=== PATIENT | female | born 1975 | race Caucasian/White ===

== ENCOUNTER 2022-04-24 09:00 | Outpatient (CLI) | payer BC, SELFPAY ==
--- NOTE | 2022-04-24 10:18 | MM_ITS ---
WS: [id number] DIAGNOSTIC BILATERAL DIGITAL BREAST TOMOSYNTHESIS MAMMOGRAPHY WITH CAD RIGHT breast ultrasound, limited HISTORY: Palpable nodule RIGHT breast, anterior, 12:00. COMPARISON: None available. TECHNIQUE: Bilateral craniocaudad, mediolateral oblique, and mediolateral views are submitted with to mosnadege and ALAINA. Computer aided detection utilized. Breast composition: The breasts are heterogeneously dense, which may obscure small masses. Triangular marker is placed along the anterior breast near 12:00. No definite underlying abnormality is identif ied. No distortion of soft tissues. No calcifications. LEFT breast is negative. RIGHT breast ultrasound, limited. 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 There is a hypoechoic mass with slightly irregular margins measuring 6 x 7 x 4 mm. No increased vascularity. Thi s is a solid mass. MM/[place] [id number] IMPRESSION: BI-RADS: 4-Suspicious Finding-Biopsy Should Be Considered FOLLOW UP: Biopsy Recommended Ultrasound-guided biopsy recommended RIGHT breast mass at the areolar. Notified TED Rodrigez at 04/24/2022 12:20 PM.
== END 2022-04-24 09:01 | disposition home or self-care (01) ==
PROVIDERS: PCP Nurse Practitioner Family; Visit Provider Nurse Practitioner Family
DX: N63.15 Unspecified lump in the right breast, overlapping quadrants (principal)
CPT/HCPCS: 76642; 77062

== ENCOUNTER 2022-05-17 13:00 | Outpatient (CLI) | payer BC, SELFPAY ==
--- NOTE | 2022-05-17 13:04 | US_ITS ---
WS: [id number] ULTRASOUND-GUIDED RIGHT BREAST BIOPSY CLINICAL INFORMATION: N63.10 - Unspecified lump in the right breast, unspecifie... FINDINGS: The procedure including risks, benefits, and complications were discussed with the patient who agreed to proceed. Using sterile technique patient was prepped and draped in the usual sterile fashion. Aft er 1% lidocaine utilizing real-time ultrasound guidance 5 14-gauge cores were obtained of the RIGHT b reast lesion at the 12 o'clock position areola. Subsequently a titanium clip was placed in the biopsy cavity. No immediate complications. Pathology demonstrates A. Breast, right, 12 o'clock, areola , biopsy: - Benign breast with fibrocystic changes. - No malignancy identified. US/[place] [id number] IMPRESSION: 1. Uncomplicated ultrasound-guided RIGHT breast biopsy. 2. The pathology demonstrates benign breast tissue with fibrocystic changes. N o malignancy identified. 3. Recommend return to annual screening mammography. BI-RADS: 2-Benign FOLLOW UP: 1 Year Follow-up
== END 2022-05-17 13:01 | disposition home or self-care (01) ==
LOC: RAD 13:01
PROVIDERS: PCP Nurse Practitioner Family; Visit Provider Nurse Practitioner Family
DX: N63.15 Unspecified lump in the right breast, overlapping quadrants (principal)
CPT/HCPCS: 19083; 88305

== ENCOUNTER → 2022-09-04 10:49 | Outpatient (BNVA) | payer BC, SELFPAY | PROVIDERS: PCP Nurse Practitioner Family; Visit Provider Nurse Practitioner Family | DX: M25.522 Pain in left elbow (principal); R03.0 Elevated blood-pressure reading, without diagnosis of hypertension | CPT/HCPCS: 73080; 80053; 80061; 84443; 85025 ==

== ENCOUNTER → 2023-09-11 10:11 | Outpatient (BNVA) | payer BC, SELFPAY | PROVIDERS: PCP Nurse Practitioner Family; Visit Provider Nurse Practitioner Family | DX: M25.521 Pain in right elbow; M79.631 Pain in right forearm | CPT/HCPCS: 73080; 73090 ==

== ENCOUNTER 2023-09-18 10:57 | Outpatient (CLI) | payer BC, SELFPAY ==
--- NOTE | 2023-09-18 13:30 | MM_ITS ---
WS: [id number] BILATERAL SCREENING DIGITAL TOMOSYNTHESIS MAMMOGRAM WITH CAD HISTORY: Z12.39 - Encounter for other screening for malignant neop... COMPARISON: 04/24/2022, Bilateral CC and MLO views with tomosynthesis and synthetic mammography submitted. Computer aided det ection analyzed. Breast composition: There are scattered areas of fibroglandular density. No suspicious masses, microc alcifications or architectural distortion. Biopsy clip in the anterior RIGHT breast. No associated ma ss. IMPRESSION: MM/[place] [id number] BI-RADS: 2-Benign FOLLOW UP: 1 Year Follow-up
== END 2023-09-18 10:58 | disposition home or self-care (01) ==
LOC: RAD 10:58
PROVIDERS: PCP Nurse Practitioner Family; Visit Provider Nurse Practitioner Family
DX: Z12.31 Encounter for screening mammogram for malignant neoplasm of breast (principal)
CPT/HCPCS: 77063; 77067

== ENCOUNTER 2023-10-23 09:49 | Outpatient (CLI) | payer BC, SELFPAY ==
--- NOTE | 2023-10-23 11:00 | MR_ITS ---
WS: [id number] MRI RIGHT ELBOW WITHOUT CONTRAST. COMPARISON: None Multiplanar, multisequence imaging is performed without contrast. No fractures or marrow edema. Normal alignment at the elbow joint. Radial head is intact. No osteocho ndral lesions. No osteophytosis. No joint effusion. The distal biceps tendon appears normal. There is no muscle atrophy. There is a very tiny amount of increased T2 signal in the radial collateral ligam ent which may represent a very tiny tear. The majority of the ligament is intact. There is no edema o r joint effusion associated with this tear. The ulnar collateral ligament appears appropriate. Normal distal triceps tendon. IMPRESSION: 1. No joint effusion or fracture. 2. Very minimal increased T2 signal in the central radial collateral ligament consistent with a very tiny tear. There is no associated adjacent soft tissue edema.
== END 2023-10-23 09:50 | disposition home or self-care (01) ==
LOC: RAD 09:50
PROVIDERS: PCP Nurse Practitioner Family; Visit Provider Nurse Practitioner Family
DX: M79.631 Pain in right forearm (principal); M25.521 Pain in right elbow; M25.621 Stiffness of right elbow, not elsewhere classified; G89.29 Other chronic pain
CPT/HCPCS: 73221; 87624

== ENCOUNTER → 2023-11-22 10:58 | Outpatient (BNVA) | payer BC, SELFPAY | PROVIDERS: PCP Nurse Practitioner Family; Visit Provider Nurse Practitioner Family | DX: J02.9 Acute pharyngitis, unspecified (principal); J06.9 Acute upper respiratory infection, unspecified | CPT/HCPCS: 87071; 87880 ==

== ENCOUNTER 2023-12-06 02:50 | Emergency (ER) | payer BC, SELFPAY ==
[2023-12-06 02:53] VITALS: BP 149/89; PULSE 69; RESP 14; TEMP 36.5; O2SAT 96; BMI 25.2
--- NOTE | 2023-12-06 02:55 | ED_ITS ---
HPI - Allergic Reaction General: Chief complaint: Allergic Reaction Stated complaint: Allergic reaction Time Seen by Provider: 12/06/23 02:51 History of Present Illness: HPI narrative: 48-year-old female who presents to the e mergency room by ambulance with allergic reaction. She says she awoke with a rash/hives and her tongue felt numb. No chest pain. No shortness of breath. No altered mental status. No nausea or vomiting. No new exposures. No new detergents. No new foods. Review of Systems Narrative: Constitutional symptoms: Negative except as documented in HPI. Skin symptoms: Negative except as documented in HPI. Eye symptoms: Negative except as documented in HPI. ENMT symptoms: Negative except as documented in HPI. Respiratory symptoms: Negative except as documented in HPI. Cardiovascular symptoms: Negative except as documented in HPI. Gastrointestinal symptoms: Negative except as documented in HPI. Genitourinary symptoms: Negative except as documented in HPI. Musculoskeletal symptoms: Negative except as documented in HPI. Neurologic symptoms: Negative except as documented in HPI. Psychiatric symptoms: Negative except as documented in HPI. Endocrine symptoms: Negative except as documented in HPI. [facility] ED PFSH: Medical History No pertinent past medical history neghx: htn,dm,thyroid,dvt/pe PCP: JORGE Rodrigez Breast mass, right (~05/2022) bx confirmed fibrocystic changes; benign Migraine Hx of ectopic did not require salpingectomy; uncertain laterality Surgical History H/O vaginoplasty (~2013) possibly A&P repair H/O tubal ligation (~2002) performed in [place]; uncertain of approach H/O dilation and curettage treatment for SAB Hx of section (~2001) performed due to breech presentation. [facility]. Family History Mother Breast cancer Diabetes Heart disease Hyperlipidemia Thyroid disease Grandfather Colon cancer Father Heart disease Hyperlipidemia Hypertension Grandmother Thyroid disease Denies family history of Ovarian cancer Prostate cancer Uterine cancer Stroke Physical Exam Narrative: EXAM NARRATIVE: General: Alert, no acute distress. Skin: Warm, dry. Diffuse xqnck-ujo-yeras rash. Head: Normocephalic, atraumatic. Neck: Supple, trachea midline. Eye: Extraocular movements are intact. Ears, nose, mouth and throat: mucosa moist. Cardiovascular: Regular, Normal peripheral perfusion. Respiratory: Lungs are clear to auscultation, respirations are non-labored, breath sounds are equal, Symmetrical chest wall expansion. Gastrointestinal: Soft, Nontender, Non distended, Normal bowel sounds. Musculoskeletal: Normal ROM, no deformity. Neurological: Alert and oriented, No focal neurological deficit observed. Psychiatric: Cooperative, appropriate mood & affect. Course Vital Signs: Vital signs: Vital Signs Temperature 97.7 F 12/06/23 02:53 Pulse Rate 70 12/06/23 03:03 Respiratory Rate 16 12/06/23 03:03 Blood Pressure 113/73 12/06/23 03:03 Pulse Oximetry 93 12/06/23 03:03 Oxygen Delivery Me thod Room Air 12/06/23 02:53 MDM - Allergic Reaction Medical Decision Making Assessment and plan: Allergic reaction/urticaria -IV Solu-Medrol, IV Pepcid, IV Zofran, IV Benadryl - Discharged home - Discussed plan with patient. Answered any questions. - Evaluation and treatment of this problem were appropriate in the emergency setting. No radiology studies performed this visit Discharge Plan Discharge Patient Disposition: Home Clinical Impression: Urticaria Prescriptions: New prednisone 20 mg tablet 60 mg PO DAILY 5 Days Qty: 15 0RF hydroxyzine HCl 25 mg tablet 25 mg PO BID PRN (Reason: anxiety) Qty: 30 0RF No Action escitalopram oxalate 10 mg tablet 15 mg PO DAILY Qty: 45 5RF Rx Instructions: Take 1.5 tablets one time daily azithromycin 250 mg tablet See Rx Instructions PO .COMPLEX Qty: 6 0RF Rx Instructions: For 250 mg dose pack: take 500 mg today (day 1), then 250 mg for 4 days (days 2-5) PO Ajovy Syringe 225 mg/1.5 mL syringe 225 mg SUBCUT .once monthly 30 Days Qty: 1.5 5RF Discharge Orders: Discharge ED (Routine); Ordered 12/06/23 Ordered By: Merly Bravo Referrals: Lizzeth Casanova, TED [Primary Care Provider] - Discharge Diet: Usual diet Discharge Activity: Increase activity as tolerated Patient Instructions: Urticaria (ED) Activity Restrictions/Additional Instructions: Thank you for choosing [facility] for your healthcare needs today. Please realize this is an emergency room and that we are providing you with a medical screening exam and this may not be complete and all inclusive of all the testing and or work up that you may need to determine your ailment or severity of your illness. You have been screened and evaluated and felt safe for discharge. Health conditions do change or evolve sometimes and as such it is important that you follow up with your Primary Doctor to be re checked, 3-5 days is a general good time frame for follow up. You are always welcome to return to the ED for re assessment if your symptoms are worsening or you have new concerns Coding Level of Care Code ED Qualitative Field Coordinator for Neel Kerr
[2023-12-06] MEDS: methylPREDNISolone sod succ 125 mg/2 mL INJ IVP (02:58)
[2023-12-06] MEDS: famotidine 20 mg/2 mL INJ 40 MG IVP (03:00)
[2023-12-06 03:03] VITALS: BP 113/73; PULSE 70; RESP 16; O2SAT 93
== END 2023-12-06 04:17 | disposition home or self-care (01) ==
PROVIDERS: Emergency Provider Emergency Medicine; PCP Nurse Practitioner Family
DX: L50.9 Urticaria, unspecified (principal)
CPT/HCPCS: 96374; 96375; 99284; J2919; J3490

== ENCOUNTER → 2023-12-11 11:47 | Outpatient (BNVA) | payer BC, SELFPAY | PROVIDERS: PCP Nurse Practitioner Family; Visit Provider Nurse Practitioner Family | DX: T78.40XA Allergy, unspecified, initial encounter (principal) | CPT/HCPCS: 86003; 86008 ==

== ENCOUNTER 2024-04-29 07:57 | Outpatient (CLI) | payer BC, SELFPAY ==
--- NOTE | 2024-04-29 08:00 | MR_ITS ---
WS: [id number] MRI BRAIN WITHOUT CONTRAST HISTORY: G43.711 - Chronic migraine without aura, intractable, wit... COMPARISON: None available. TECHNIQUE: Diffusion imaging, multiplanar T1, T2 and FLAIR imaging obtained. No evidence for acute infarct or hemorrhage. Spence-white matter differentiation is normal. No prior infarct. Mild bilateral small vessel ischemic disease in the vince. Focal T2 and FLAIR signal in the RIGHT basal ganglia and adjacent to the LEFT posterior lateral ventricle. Ventricles and extra-axial spaces are normal. No inferior displacement of cerebellar tonsils. The sella turcica and pituitary gland are unremarkabl e. Dural venous sinuses and [place] demonstrate no abnormality on this unenhanced studies. Paranasal sinuses: Clear. Mastoid air cells: Normal. Calvarium and scalp: Intact. MR/MR head wo con* [id number] IMPRESSION: 1. No acute infarct. No remote infarct or significant volume loss. 2. Mild small vessel ischemic disease in the RIGHT basal ganglia adjacent to t he posterior horn of the LEFT lateral ventricle. 3. Mild bilateral small vessel disease in the vince.
== END 2024-04-29 07:58 | disposition home or self-care (01) ==
PROVIDERS: PCP Nurse Practitioner Family; Visit Provider Specialist
DX: G43.711 Chronic migraine without aura, intractable, with status migrainosus (principal)
CPT/HCPCS: 70551

== ENCOUNTER → 2024-09-21 09:58 | Outpatient (BNVA) | payer BC, SELFPAY | PROVIDERS: PCP Clinical Nurse Specialist Adult Health; Visit Provider Clinical Nurse Specialist Adult Health | DX: F41.1 Generalized anxiety disorder (principal) | CPT/HCPCS: 80053; 80061; 85025 ==

== ENCOUNTER 2024-11-05 08:58 | Outpatient (CLI) | payer BC, SELFPAY ==
--- NOTE | 2024-11-05 09:00 | MM_ITS ---
WS: [id number] BILATERAL 3D TOMOSYNTHESIS DIGITAL SCREENING MAMMOGRAPHY WITH CAD CLINICAL INFORMATION: Z12.31 - Encounter for screening mammogram for malignant ... HISTORY: Screening mammogram. No current complaints. COMPARISON: 09/18/2023 TECHNIQUE: Bilateral CC and MLO views. FINDINGS: The breasts are composed of heterogeneous fibroglandular density tissue, which can limit the detection of small underlying mass lesions. No suspicious mass, asymmetry, calcifications, or architectural distortion. No evidence of malignancy. Biopsy clip RIGHT breast. Few tiny incidental punctate calcific ations. MM/MM [facility] tomosynthesis [id number] IMPRESSION: DENSITY: The breasts are heterogeneously dense, which may obscure small masses. BI-RADS: 2 - Benign FOLLOW UP: 1 Year Follow-up Recommend return to annual screening mammography.
== END 2024-11-05 08:59 | disposition home or self-care (01) ==
PROVIDERS: PCP Clinical Nurse Specialist Adult Health; Visit Provider Nurse Practitioner Women's Health
DX: Z12.31 Encounter for screening mammogram for malignant neoplasm of breast (principal); R92.333 Mammographic heterogeneous density, bilateral breasts
CPT/HCPCS: 77063; 77067